=== PATIENT | female | born 1975 | race American Indian/Alaskan Native ===

== ENCOUNTER 2017-10-05 13:26 | Emergency (ER) | payer OTHER ==
[2017-10-05] MEDS ORDERED: Sodium Chloride 0.9% 1,000 ML IV STA (13:54)
--- NOTE | 2017-10-05 13:57 | ED PDOC ---
"Arrival/HPI - General Chief Complaint: Abdominal Pain Time Seen by Provider: 10/05/17 13:40 Historian: Patient - History of Present Illness Narrative History of Present Illness (Text): 10/05/17 13:40 42 year old female, pmh including fibroid with abnormal pap smear which she is scheduled for colposcopy, nkda, complaining of lower abdominal pain x 1 year. Pt. stated that she has periumbilical pain for 1 year, associated with her menstrual period which more worsened during menstrual cycle, no fever or chills , admits nausea when she has pain which she is on her period now. Pt. stated that she was seen at [facility] [place], obtained lab work and show no acute findings then discharge home with naproxen and zofran. pt. is here today because she still has pain, has obgyn follow up, no vaginal discharge, no night sweat, no dizziness, no weight loss, no other medical or psychological complaints. Past Medical History - Provider Review Nursing Documentation Reviewed: Yes - Infectious Disease Hx of Infectious Diseases: None - Reproductive Menopause: No - Cardiac Hx Cardiac Disorders: No - Pulmonary Hx Respiratory Disorders: No - Renal Hx Renal Disorder: No - Endocrine/Metabolic Hx Endocrine Disorders: No - Hematological/Oncological Hx Blood Disorders: No - Integumentary Hx Dermatological Disorder: No - Gastrointestinal Hx Gastrointestinal Disorders: No - Genitourinary/Gynecological Other/Comment: fibroid - Psychiatric Hx Psychophysiologic Disorder: No Hx Substance Use: Yes - Anesthesia Hx Anesthesia: No Family/Social History - Physician Review Nursing Documentation Reviewed: Yes Family/Social History: Unknown Family HX Smoking Status: Current Some Days Smoker Hx Alcohol Use: Yes Frequency of alcohol use: Socially Hx Substance Use: Yes Substance used: marijuana Allergies/Home Meds Allergies/Adverse Reactions: Allergies No Known Allergies Allergy (Verified 10/05/17 13:39) Home Medications: Home Meds Medication Instructions Recorded Confirmed Ibuprofen [Motrin Tab] 800 mg PO PRN PRN 10/05/17 10/05/17 Naproxen 250 mg PO PRN PRN 10/05/17 10/05/17 Ondansetron HCl [Zofran] 4 mg PO PRN PRN 10/05/17 10/05/17 Review of Systems - Review of Systems Constitutional: absent: Fatigue, Fevers Eyes: absent: Vision Changes ENT: absent: Hearing Changes Respiratory: absent: SOB, Cough Cardiovascular: absent: Chest Pain Gastrointestinal: Abdominal Pain, Nausea. absent: Diarrhea, Vomiting Musculoskeletal: absent: Arthralgias, Back Pain Skin: absent: Rash, Pruritis, Skin Lesions Neurological: absent: Headache, Dizziness Psychiatric: absent: Anxiety, Depression, Suicidal Ideation Physical Exam Vital Signs Reviewed: Yes Vital Signs Temp Pulse Resp BP Pulse Ox 10/05/17 17:57 64 18 100 10/05/17 15:18 62 20 135/76 98 10/05/17 13:34 98.7 F 68 18 131/74 98 Temperature: Afebrile Blood Pressure: Normal Pulse: Regular Respiratory Rate: Normal Appearance: Positive for: Well-Appearing, Non-Toxic, Comfortable Pain Distress: Moderate Mental Status: Positive for: Alert and Oriented X 3 - Systems Exam Head: Present: Atraumatic, Normocephalic Pupils: Present: PERRL Extroacular Muscles: Present: EOMI Conjunctiva: Present: Normal Mouth: Present: Moist Mucous Membranes Neck: Present: Normal Range of Motion Respiratory/Chest: Present: Clear to Auscultation, Good Air Exchange. No: Respiratory Distress, Accessory Muscle Use Cardiovascular: Present: Regular Rate and Rhythm, Normal S1, S2. No: Murmurs Abdomen: Present: Tenderness (mild periubilical tenderness). No: Distention, Peritoneal Signs, Rebound, Guarding Back: Present: Normal Inspection. No: CVA Tenderness, Midline Tenderness, Paraspinal Tenderness Upper Extremity: Present: Normal Inspection. No: Cyanosis, Edema Lower Extremity: Present: Normal Inspection. No: Edema Neurological: Present: GCS=15, CN II-XII Intact, Speech Normal, Motor Func Grossly Intact, Gait Normal, Memory Normal Skin: Present: Warm, Dry, Normal Color. No: Rashes Psychiatric: Present: Alert, Oriented x 3, Normal Insight, Normal Concentration Medical Decision Making ED Course and Treatment: 10/05/17 13:59 Differential: Appendicitis vs. Bowel obstruction vs. Dysmenorrhea vs. ectopic vs. dehydration vs. UTI -Labs/ua -CT abdomen and pelvis -Pelvic sonogram (pt. declined transvaginal sonogram) -IVF/pepcid/toradol -Observe and reassess 10/05/17 19:02 -Urine hcg is negative -EKG: Sinus Bradycardia @ 55 BPM, no ST elevation or depression, no T wave inversion. -Pelvic sonogram show Measures 3.3 x 2.1 x 2.5 cm. No solid mass. Normal flow. Measures 2.2 x 1.7 x 1.8 cm. No solid mass. Normal flow. Multiple uterine fibroids -CT abdomen and pelvis show Heterogeneous complex appearing mass probably arising from the left aspect of the uterus. Differential diagnosis includes an atypical fibroid, differential diagnosis also includes neoplastic process, or ovarian carcinoma. Consider correlation with transvaginal sonogram for more definitive assessment. No evidence for bowel herniation, bowel obstruction, colitis, appendicitis or diverticulitis. -Labs show no acute findings except mild elevated magnesium 2.5 (normal bun and creatine) -Urinalysis show no UTI -I checked the [facility] report, there is no record of this patient's name and provided. -Pt. feels better and request more pain med, percocet ordered which she is feeling relief now. -All labs and radiology result discussed with the patient: differential including the possibility for fibroid vs. neoplastic which she would need obgyn follow up. Pt. verbally expressed understanding. Copy of the CT provided to the patient. -Discharge home with percocet, continue your naproxen at home for pain as needed , follow up with your own pmd and obgyn within 2 days, return to the ER for any new or worsening signs or symptoms. - Lab Interpretations Lab Results: 10/05/17 15:00 10/05/17 15:00 Lab Results 10/05/17 15:00: WBC 8.5, RBC 3.80, Hgb 12.1, Hct 33.6 L, MCV 88.4, MCH 31.8, MCHC 36.0, RDW 16.9 H, Plt Count 564 H, MPV 9.4, Gran % 73.0 H, Lymph % (Auto) 17.2 L, [place] % (Auto) 9.7 H, Eos % (Auto) 0.0 L, Baso % (Auto) 0.1, Gran # 6.23 , Lymph # (Auto) 1.5, [place] # (Auto) 0.8 H, Eos # (Auto) 0.0, Baso # (Auto) 0.01 10/05/17 15:00: Sodium 143, Potassium 4.5, Chloride 101, Carbon Dioxide 26, Anion Gap 20, BUN 11, Creatinine 0.7, Est GFR ( Amer) > 60, Est GFR (Non- Af Amer) > 60, Random Glucose 106, Calcium 10.2, Magnesium 2.5 H, Total Bilirubin 0.6, AST 39 H, ALT 25, Alkaline Phosphatase 78, Total Protein 9.2 H, Albumin 4.9 H, Globulin 4.2, Albumin/Globulin Ratio 1.2, Lipase 136 10/05/17 14:00: Urine Color Yellow, Urine Appearance Clear, Urine pH 6.5, Ur Specific Spring <= 1.005, Urine Protein Negative, Urine Glucose (UA) Negative, Urine Ketones Negative, Urine Blood Large H, Urine Nitrate Negative, Urine Bilirubin Negative, Urine Urobilinogen 0.2, Ur Leukocyte Esterase Negative, Urine RBC 25 - 30, Urine WBC 1 - 3, Ur Epithelial Cells 4 - 5, Urine Bacteria Many - RAD Interpretation Radiology Orders: 10/05/17 13:54 ABD & PELVIS IV CONTRAST ONLY [CT] Stat PELVIS ULTRASOUND [US] Stat CT Abdomen and pelvis: FINDINGS: Lung bases: The visualized portions of the lung bases are normal. ABDOMEN: Liver: Small simple cysts present in the patient's liver. Gallbladder and bile ducts: Unremarkable. No calcified stones. No ductal dilation. No significant wall thickening. Pancreas: Unremarkable. No mass. No ductal dilation. Spleen: Unremarkable. No splenomegaly. Adrenals: Unremarkable. No mass. Kidneys and ureters: Both kidneys are normal in morphology and demonstrate homogeneous enhancement without mass. No ureteral enlargement or stones are noted. JAGJIT CANDELARIA | Preliminary Radiology Report BUILDING CERTIFIER (QA) DISCREPANCY? If there is a discrepancy between the preliminary and final interpretation, please notify [facility] via [email or web address]. If you do not have access to our QA portal, call our QA team at [phone] CONFIDENTIALITY STATEMENT This report is intended only for the use of the referring physician, and only in accordance with law, If you received this in error, call [phone] Page 2 of 2 Stomach and bowel: Bowel loops appear within normal limits, no signs of wall thickening, mucosal edema, or bowel distention. Moderate amount of formed fecal material is seen within the sigmoid loops which may be associated with constipation. PELVIS: Appendix: A normal appendix seen in the right lower quadrant. Bladder: Unremarkable. No mass. Reproductive: Heterogeneous mass is noted confined to the patient's pelvis likely involving the left aspect of the uterus or adnexa. There are punctate pleomorphic calcifications with hypodense irregular internal morphology. Mass in question compresses the endometrium, and measures 6.2 cm. The ovaries are not well seen. ABDOMEN and PELVIS: Intraperitoneal space: Unremarkable. No free air. No significant fluid collection. Bones/joints: No acute fracture. No dislocation. Soft tissues: Unremarkable. Vasculature: The aorta demonstrates moderate atherosclerotic calcification. No abdominal aortic aneurysm. Lymph nodes: Unremarkable. No enlarged lymph nodes. IMPRESSION: Heterogeneous complex appearing mass probably arising from the left aspect of the uterus. Differential diagnosis includes an atypical fibroid, differential diagnosis also includes neoplastic process, or ovarian carcinoma. Consider correlation with transvaginal sonogram for more definitive assessment. No evidence for bowel herniation, bowel obstruction, colitis, appendicitis or diverticulitis. Thank you for allowing us to participate in the care of your patient. Dictated and Authenticated by: Izaiah Villagomez MD 10/05/2017 6:51 PM Eastern Time ([place] & [place]) Pelvic sonogram: Date of service: 10/05/2017 HISTORY: lower abdominal pain COMPARISON: Correlation made with concurrent CT scan abdomen pelvis the TECHNIQUE: Transabdominal sonographic evaluation of pelvis performed FINDINGS: UTERUS: Measures approximately 10.0 x 5.2 x 5.9 cm. . Findings most consistent with uterine fibroids the largest measuring approximately 3.3 x 3.2 x 4.4 with a 2nd small fibroid measuring 1.9 cm in greatest dimension. ENDOMETRIUM: Measures 4.8 mm in diameter. Unremarkable. CERVIX: No cervical abnormality identified. Cervix measures approximately 3.5 cm RIGHT OVARY: Measures 3.3 x 2.1 x 2.5 cm. No solid mass. Normal flow. LEFT OVARY: Measures 2.2 x 1.7 x 1.8 cm. No solid mass. Normal flow. FREE FLUID: No significant free fluid noted. OTHER FINDINGS: None. IMPRESSION: Multiple uterine fibroids. Novelty Maker: Radiologist - EKG Interpretation EKG Interpretation (Text): 10/05/17 15:45 -EKG: Sinus Bradycardia @ 55 BPM, no ST elevation or depression, no T wave inversion. Interpreted by ED Physician: Yes Type: 12 lead EKG - Medication Orders Current Medication Orders: Discontinued Medications Famotidine (Pepcid) 20 mg IVP STAT STA Stop: 10/05/17 13:55 Last Admin: 10/05/17 14:38 Dose: 20 mg IVP Administration Document 10/05/17 14:38 (Rec: 10/05/17 14:38 [place] [id number]) Charges for Administration # of IVP Administrations 1 Sodium Chloride (Sodium Chloride 0.9%) 1,000 mls @ 999 mls/hr IV .Q1H1M STA Stop: 10/05/17 14:54 Last Admin: 10/05/17 14:39 Dose: 999 mls/hr eMAR Start Stop Document 10/05/17 14:39 (Rec: 10/05/17 14:39 [email or web address] Intravenous Solution Start Date 10/05/17 Start Time 14:39 Ketorolac Tromethamine (Toradol) 30 mg IVP STAT STA Stop: 10/05/17 13:55 Last Admin: 10/05/17 14:38 Dose: 30 mg MAR Pain Assessment Document 10/05/17 14:38 (Rec: 10/05/17 14:38 [email or web address] Pain Reassessment Is this a pain reassessment? No Sleep Is patient sleeping during reassessment? No Presence of Pain Presence of Pain Yes Pain Scale Used Pain Scale Used Numeric IVP Administration Document 10/05/17 14:38 (Rec: 10/05/17 14:38 [email or web address]) Charges for Administration # of IVP Administrations 1 Metoclopramide HCl (Reglan) 10 mg IVP STAT STA Stop: 10/05/17 13:55 Last Admin: 10/05/17 14:37 Dose: 10 mg IVP Administration Document 10/05/17 14:37 (Rec: 10/05/17 14:38 [email or web address]) Charges for Administration # of IVP Administrations 1 Oxycodone/Acetaminophen (Percocet 5/325 Mg Tab) 1 tab PO STAT STA Stop: 10/05/17 17:18 Last Admin: 10/05/17 17:26 Dose: 1 tab MAR Pain Assessment Document 10/05/17 17:26 (Rec: 10/05/17 17:26 [place] [id number]) Pain Reassessment Is this a pain reassessment? No Sleep Is patient sleeping during reassessment? No Presence of Pain Presence of Pain Yes - PA / SOFTWARE DEVELOPMENT PROJECT MANAGER / Resident Statement MD/DO has reviewed & agrees with the documentation as recorded. Disposition/Present on Arrival - Present on Arrival Any Indicators Present on Arrival: No History of DVT/PE: No History of Uncontrolled Diabetes: No Urinary Catheter: No History of Decub. Ulcer: No History Surgical Site Infection Following: None - Disposition Have Diagnosis and Disposition been Completed?: Yes Diagnosis: Abdominal pain, Uterine fibroid, Dysmenorrhea, Abnormal abdominal CT scan Disposition: HOME/ ROUTINE Disposition Time: 19:04 Patient Plan: Discharge Patient Problems: Current Active Problems Problem Status Onset Abdominal pain Acute Uterine fibroid Acute Dysmenorrhea Acute Condition: IMPROVED Additional Instructions: -Discharge home with percocet, continue your naproxen at home for pain as needed , follow up with your own pmd and obgyn within 2 days, return to the ER for any new or worsening signs or symptoms. Prescriptions: oxyCODONE/Acetaminophen [Percocet 5/325 mg Tab] 1 tab PO TID PRN #12 tab PRN Reason: Other Referrals: Teddy Sanchez MD [Primary Care Provider] - Follow up with primary Jona Michel MD [Staff Provider] - Follow up with primary Krishan Yang MD [Staff Provider] - Follow up with primary Forms: [employer] (Yoruba), WORK NOTE"
[2017-10-05 14:25] LABS: PH,URINE 6.5 (4.7-8.0); URINE BILIRUBIN NEGATIVE (NEGATIVE); URINE BLOOD LARGE (NEGATIVE); URINE GLUCOSE (UA) NEGATIVE (NEGATIVE); URINE LEUKOCYTE ESTERASE NEGATIVE Leu/uL (NEGATIVE); URINE PROTEIN NEGATIVE mg/dL (<30 mg/dL); URINE UROBILINOGEN 0.2 E.U./dL (<1 E.U./dL)
[2017-10-05 14:26] LABS: URINE APPEARANCE CLEAR (CLEAR); URINE COLOR YELLOW (YELLOW)
[2017-10-05 14:37] LABS: URINE RBC 25 - 30 /hpf (0-2)
[2017-10-05 14:38] LABS: URINE BACTERIA MANY (NEG)
[2017-10-05 15:15] LABS: BASO # 0.01 K/mm3 (0.0-2.0); BASO % 0.1 % (0.0-3.0); GRAN # 6.23 (1.4-6.5); HEMOGLOBIN 12.1 g/dL (12.0-16.0); LYMPH # 1.5 (1.2-3.4); LYMPH % 17.2 % (22.0-35.0); MEAN CELL VOLUME 88.4 fl (80.0-105.0); MEAN CORPUSCULAR HEMOGLOBIN 31.8 pg (25.0-35.0); MEAN PLATELET VOLUME 9.4 fl (7.0-11.0); MONO # 0.8 (0.1-0.6); MONO % 9.7 % (1.0-6.0); RBC 3.8 10^6/uL (3.5-6.1); RED CELL DISTRIBUTION WIDTH 16.9 % (11.5-14.5); WHITE BLOOD COUNT 8.5 10^3/ul (4.5-11.0)
[2017-10-05 15:21] VITALS: BP 135/76
[2017-10-05 16:01] LABS: ALB/GLOB RATIO 1.2 (1.1-1.8); ALBUMIN 4.9 g/dL (3.0-4.8); ALT/SGPT 25 U/L (7-56); AST/SGOT 39 U/L (14-36); BLOOD UREA NITROGEN 11 mg/dL (7-21); CALCIUM 10.2 mg/dL (8.4-10.5); GFR AFRICAN-AMERICAN > 60; GFR NON-AFRICAN AMERICAN > 60; LIPASE 136 U/L (23-300)
[2017-10-05] MEDS ORDERED: Iohexol 350 MG/100 ML VIAL ONE (16:22)
--- NOTE | 2017-10-05 17:04 | US ---
Date of service: 10/05/2017 HISTORY: lower abdominal pain COMPARISON: Correlation made with concurrent CT scan abdomen pelvis the TECHNIQUE: Transabdominal sonographic evaluation of pelvis performed FINDINGS: UTERUS: Measures approximately 10.0 x 5.2 x 5.9 cm. . Findings most consistent with uterine fibroids the largest measuring approximately 3.3 x 3.2 x 4.4 with a 2nd small fibroid measuring 1.9 cm in greatest dimension. ENDOMETRIUM: Measures 4.8 mm in diameter. Unremarkable. CERVIX: No cervical abnormality identified. Cervix measures approximately 3.5 cm RIGHT OVARY: Measures 3.3 x 2.1 x 2.5 cm. No solid mass. Normal flow. LEFT OVARY: Measures 2.2 x 1.7 x 1.8 cm. No solid mass. Normal flow. FREE FLUID: No significant free fluid noted. OTHER FINDINGS: None. IMPRESSION: Multiple uterine fibroids.
[2017-10-05] MEDS ORDERED: Oxycodone/Acetaminophen 5/325 mg Tab PO STA (17:17)
[2017-10-05 17:58] VITALS: RESP 18
[2017-10-05 19:18] VITALS: PULSE 62; TEMP 98.3; O2SAT 98
--- NOTE | 2017-10-06 11:23 | CARD ---
APPROVED REPORT Date of service: 10/05/2017 EKG Measurement Heart [id number] <Conclusion> Sinus bradycardia with short [place] Otherwise normal ECG
--- NOTE | 2017-10-06 12:48 | CT ---
Date of service: 10/05/2017 PROCEDURE: CT abdomen pelvis HISTORY: Lower abdominal pain x 1 year COMPARISON: Correlation made with concurrent pelvic ultrasound. TECHNIQUE: Contiguous axial images of the abdomen and pelvis performed of following intravenous injection of approximately 95 cc Omnipaque 350 additional 2D reformats generated. Radiation dose: Total exam DLP = 208.67 mGy-cm. This CT exam was performed using one or more of the following dose reduction techniques: Automated exposure control, adjustment of the mA and/or kV according to patient size, and/or use of iterative reconstruction technique. FINDINGS: LOWER THORAX: Heart size within range of normal. No significant pericardial effusion. Small hiatal hernia. LIVER: Liver is mildly enlarged measuring nearly 19 cm in CC dimension. There are several low-attenuation foci seen scattered throughout the hepatic parenchyma the largest located in the left lobe liver measuring approximately 4.7 mm with the remaining foci smaller in size. These lesions are too small to characterize the and may represent hepatic cysts however follow-up CT scan at interval recommended to assess stability and exclude other pathology. Portal and splenic veins are opacified. GALLBLADDER AND BILE DUCTS: Gallbladder is physiologically distended. No evidence of intraluminal gallbladder calculi. PANCREAS: Unremarkable. No mass. No ductal dilatation. SPLEEN: Unremarkable. No splenomegaly. ADRENALS: Unremarkable. KIDNEYS AND URETERS: Unremarkable. No stone or hydronephrosis. BLADDER: Grossly unremarkable. REPRODUCTIVE: There is a large mass lesion which appears to arise from the left uterine body that measures approximately 5.7 x 5.6 x 4.9 cm and exhibits large area of central low attenuation and peripheral curvilinear foci of increased attenuation . This could represent a large degenerating fibroid however neoplastic process of the uterus not excluded. Ovarian carcinoma less likely. tech ed/woodshop teacher consultation recommended. APPENDIX: Unremarkable. BOWEL: Evaluation of the bowel is somewhat limited due to the lack of oral contrast material. The stomach PERITONEUM: Unremarkable. No fluid collection. No free air. LYMPH NODES: Unremarkable. No enlarged lymph nodes. VASCULATURE: Unremarkable. No aortic aneurysm. BONES: No fracture or destructive lesion. OTHER FINDINGS: None. IMPRESSION: There is a large the mass lesion presumably arising from the left aspect of the uterine body likely representing a large degenerating fibroid however malignant neoplasm not excluded. Ovarian origin lesion less likely. HYDRO MECHANIC consultation recommended. Borderline/mild hepatomegaly. Multiple tiny low-attenuation foci scattered throughout the hepatic parenchyma too small to characterize though probably represent small cyst. Followup interval recommended to assess stability
== END 2017-10-05 19:15 | disposition home or self-care (01) ==
LOC: ED 13:26
DX: D25.9 Leiomyoma of uterus, unspecified (principal); N94.6 Dysmenorrhea, unspecified; R10.30 Lower abdominal pain, unspecified; R93.5 Abnormal findings on diagnostic imaging of other abdominal regions, including retroperitoneum
CPT/HCPCS: 74177; 76856; 80053; 81001; 83690; 83735; 85025; 93005; 96374; 96375; 99283; J1885; J2765; J7030; Q9967